=== PATIENT | female | born 1990 | race Caucasian/White ===

== ENCOUNTER → 2016-08-30 | Outpatient (CLI) | payer OTHER ==
[~2016-08-30] MED LIST: CLON0.5T3 PO; VENL25TA2 PO
--- NOTE | 2016-08-30 12:40 | DIAGNOSTIC IMAGING REPORT ---
LEFT FOOT MIN 3 VIEWS ROUTINE CLINICAL HISTORY: Stress fracture of left foot. Left foot pain. COMPARISON: Left foot radiographs July 27, 2016. FINDINGS: The tarsometatarsal joints are intact. No displaced fracture is identified. Subtle cortical thickening of the mid shaft of the proximal phalanx of the left third toe is unchanged. Slight irregularity of the cortex of the mid shaft of the left second metatarsal is unchanged. The appearance of the foot is unchanged since prior exam. Joint spaces are preserved. No erosions are identified. IMPRESSION: 1. No displaced fracture of the left foot. 2. No change in subtle cortical thickening of the proximal phalanx of the left third toe. This could be chronic or represent a healing stress fracture. 3. No change in subtle cortical irregularity of the left second metatarsal which is probably within normal limits. Electronically signed by: Chris Tarango M.D. 08/30/2016 12:38 PM Dictated Date/Time: 08/30/2016 12:35 PM
== END | disposition home or self-care (01) ==
LOC: C.RAD1850 11:22
PROVIDERS: ATTEND Family Medicine
DX: M84.375A Stress fracture, left foot, initial encounter for fracture (principal); X58.XXXA Exposure to other specified factors, initial encounter